=== PATIENT | male | born 1960 | race Caucasian/White ===

== ENCOUNTER 2022-03-26 05:15 | Day surgery (SDC) | payer OTHER ==
[~2022-03-26] VITALS: Ht 167.6 cm; Wt 83.9 kg
[2022-03-26] MEDS ORDERED: SIMETHICONE 40 MG/0.6 ML ML ONE (06:43)
[2022-03-26] MEDS ORDERED: LIDOCAINE 2%, 20 ML MDV ONE (07:40)
[2022-03-26] MEDS ORDERED: LR 1,000 ML IV.SOLN IV ONE (07:40)
[2022-03-26] MEDS ORDERED: PROPOFOL 200MG/ 20ML VIAL (DIPRIVAN) IV ONE (07:40)
[2022-03-26 13:31] VITALS: BP_SYST 117
== END 2022-03-26 10:00 | disposition home or self-care (01) ==
LOC: SMU 05:15 → SDS 05:15
PROVIDERS: ATTEND Internal Medicine Gastroenterology
DX: Z12.11 Encounter for screening for malignant neoplasm of colon (principal); K29.50 Unspecified chronic gastritis without bleeding; K63.5 Polyp of colon; K57.30 Diverticulosis of large intestine without perforation or abscess without bleeding; K64.8 Other hemorrhoids; K21.00 Gastro-esophageal reflux disease with esophagitis, without bleeding; K44.9 Diaphragmatic hernia without obstruction or gangrene; Z86.010 Personal history of colon polyps; M19.90 Unspecified osteoarthritis, unspecified site; Z91.040 Latex allergy status; M79.7 Fibromyalgia; Z79.899 Other long term (current) drug therapy; Z20.822 Contact with and (suspected) exposure to COVID-19
CPT/HCPCS: 71046; 93005; 36415; 45385; 43239; 88305; 88312; 88313; U0003; J2001; J2704; J7120